=== PATIENT | male | born 1960 | race Caucasian/White ===

== ENCOUNTER 2017-07-02 08:54 | Inpatient (IN) | payer BC ==
[~2017-07-02 08:54] MED LIST: 0.9 % SODIUM CHLORIDE 10 ML VIAL IVP ONE; CELECOXIB 100 MG CAPSULE PO ONE; FAMOTIDINE 20MG TABLET PO ONE; MECLIZINE 25 MG TABLET PO ONE; METOCLOPRAMIDE 10 MG TABLET PO ONE; TRANEXAMIC ACID 1,000 MG/10 ML ML IV ONE; VANCOMYCIN HCL 1,000 MG in DEXTROSE 5 % IN WATER 250 ML IVPB ONE
[2017-07-02 09:39] LABS: ABO GROUP B; RH TYPE NEGATIVE
[2017-07-02 09:46] LABS: ANTIBODY SCREEN NEGATIVE (NEGATIVE)
[2017-07-02] MEDS ORDERED: HYDROCODONE/APAP 10/325 TABLET PO PRN ×2 (13:30)
[2017-07-02] MEDS ORDERED: CEFAZOLIN 2 Gram 2 GM/50 ML BAG IVPB SCH (13:30)
[2017-07-02] MEDS ORDERED: BISACODYL 10 MG SUPP RC PRN (13:30)
[2017-07-02] MEDS ORDERED: NALOXONE 0.4 MG/1 ML VIAL IVP PRN (13:30)
[2017-07-02] MEDS ORDERED: AL HYDROX/MAG HYDROX 30ML UD PO PRN (13:30)
[2017-07-02] MEDS ORDERED: ACETAMINOPHEN W/ CODEINE 300MG/60MG TABLET PO PRN ×2 (13:30)
[2017-07-02] MEDS ORDERED: HYDROMORPHONE HCL 2 MG/ML VIAL IM PRN (13:30)
[2017-07-02] MEDS ORDERED: ONDANSETRON HCL IV 4 MG/2 ML VIAL IVP PRN (13:30)
[2017-07-02] MEDS ORDERED: MAGNESIUM HYDROXIDE 30 ML UDC PO PRN (13:30)
[2017-07-02] MEDS ORDERED: KETOROLAC 30 MG/ML VIAL IVP PRN ×2 (13:30)
[2017-07-02] MEDS ORDERED: ZOLPIDEM TARTRATE 5 MG TABLET PO PRN (13:30)
[2017-07-02] MEDS ORDERED: ACETAMINOPHEN 325 MG TAB PO PRN (13:30)
[2017-07-02] MEDS: DIPHENHYDRAMINE HCL 25 MG CAPSULE PO PRN ×2 (14:58→22:46)
[2017-07-02] MEDS ORDERED: TRANEXAMIC ACID 1,000 MG/10 ML ML IV ONE (15:37)
[2017-07-02] MEDS ORDERED: BUPIVACAINE 0.75% W/EPI MPF 30ML VIAL IVP ONE (15:37)
[2017-07-02] MEDS ORDERED: HYDROMORPHONE HCL 2 MG/ML VIAL IV ONE (16:02)
[2017-07-02] MEDS ORDERED: DIPHENHYDRAMINE HCL IV 50 MG/ML VIAL IVP ONE (16:02)
[2017-07-02] MEDS ORDERED: LIDOCAINE 2% MDV (20MG/ML) 20ML VIAL IV ONE (16:02)
[2017-07-02] MEDS ORDERED: MIDAZOLAM HCL 2MG/2ML VIAL IV ONE (16:02)
[2017-07-02] MEDS ORDERED: PROPOFOL 10 MG/ML VIAL IV ONE (16:02)
[2017-07-02] MEDS ORDERED: FENTANYL PF 100MCG/2ML VIAL IV ONE (16:02)
--- NOTE | 2017-07-02 16:21 | Operative Note ---
DATE: 07/02/2017. PREOPERATIVE DIAGNOSIS: DJD OF THE LEFT HIP. POSTOPERATIVE DIAGNOSIS: DJD OF THE LEFT HIP. PROCEDURE: CEMENTLESS LEFT TOTAL HIP ARTHROPLASTY USING MATA-NEPHEW COMPONENTS WITH A SIZE 58 NO-HOLE REFLECTION CUP, A 20-DEGREE OFFSET, 36 MM DIAMETER LINER, A SIZE 18 HIGH OFFSET ECHELON STEM WITH AA +8, 36 MM DIAMETER OXINIUM HEAD. STAFF SURGEON: HERMANN PAZ M.D. ANESTHESIA: SPINAL. PREPARATION: CHLORAPREP. INDIVIDUAL CONSIDERATIONS: None. PROCEDURE: The patient was taken to the Operating Room and placed supine on the operating table. He had successful induction of a spinal anesthetic. He was then placed on his side, left side up, and his left leg and hip were prepped and draped in the usual fashion. The patient had a direct posterior approach to the hip. Sharp dissection was carried down through the skin and subcutaneous tissue. Small veins were coagulated with a Bovie. The tensor gluteal fascia was opened along the entire length of the incision and deep retractors were placed. Short external rotators were identified, piriformis fossa and removed exposing the posterior capsule. A posterior capsulectomy was performed, and the hip was dislocated posteriorly. His head didn't look bad but he had basically an area of his acetabular dome that was exposed bone and an oscillating saw was used to make a femoral neck cut just about a fingerbreadth above the lesser trochanter. A I now exposed the capsule, and a rim capsulectomy was performed. starting with a 47 mm reamer to get to the medial wall. I reamed the introitus, which was a 57 for a 58 cup. There was decent bleeding cancellous bone. I slightly under-reamed a 56 and after thorough irrigation, I impacted a 58 mm no-hole Warroad cup at 20 degrees of forward flexion and 40 degrees of abduction using the extra-articular alignment guide and bony landmarks. There was very solid cementless fixation. The center cap screw was placed and then a 20-degree offset, 36 mm diameter liner was placed with the offset primarily posteriorly and inferiorly and this gave an excellent, stable acetabular construct and this was packed off. The proximal femur was delivered into the wound. A box-cutting osteotome was used to remove proximal metaphyseal bone. Mid-stem reaming was done to a size 18. I started actually only filling cortex to maybe even 16; he was that big. I went ahead and broached to an 18. There was solid cementless fixation to the broach. Calcar reamed and with a high offset +8, there was absolute stability. The trial was removed and after thorough irrigation, I impacted a size 18 high offset Warroad stem with solid cementless fixation and solid calcar contact. I again irrigated, dried to the Lopez taper, and impacted a +8 Oxinium head and reduced the hip with solid stability, absolute anterior stability with full leg extension and external rotation. I flexed him up with the knee into the chest, which was stable. I had him flex 90 degrees, internally rotated 90 degrees, and even at that point, it was still stable. If I flexed him past 140 and then internally rotated past 30 or 40 then we start to get instability issues. After irrigation, the sciatic nerve was inspected and was found to be completely intact. Hemostasis was obtained with a Bovie. The patient did receive a gram of Tranexamic Acid preoperatively. I mixed a gram Tranexamic Acid with 30 mL of saline and placed this deep to the fascia. The fascia was closed a running #2 Quill. The subcutaneous was closed with 0 Quill and the skin was closed with jillian. I did infiltrate the skin with 30 mL of of 0.75 percent Marcaine with Epinephrine prior. The patient tolerated the procedure well. Needle and sponge counts were correct. Estimated blood loss was about 250 mL. There were no complications. cc: Dr. Danny Mata JOB NUMBER: [id number] MTDD
--- NOTE | 2017-07-02 17:09 | Rehab Evaluation ---
Patient Information - Patient Information Diagnosis: DJD L hip Ordered Treatment: PT Evaluate and Treat Status: Initial Evaluation Surgery: Yes (AMBER L) Date of Surgery: 07/02/17 Past Medical/Surgical Hx: PAST MEDICAL/SURGICAL HISTORY Past Surgical History 2014 lung bx open 2006 lumbar fusion back injs ana cristina PMH - Respiratory Hx Respiratory Disorders Yes Hx Bronchitis Yes: "a litle bronchitis right now" no [place] Comment: was told he had lung CA in 2014 open bx neg. PMH - Cardiovascular Hx Cardiovascular Disorders Yes Hx Hypertension Yes: on meds good control Exercise Tolerance Poor Comment: due to hip pain PMH - Neuro Hx Neurological Disorders No PMH - GI Hx Gastrointestinal Disorders No PMH - Hx Genitourinary Disorders No PMH - Endocrine Hx Endocrine Disorders Yes Hx Diabetes No Hx Thyroid Disease Yes PMH - Musculoskeletal Hx Musculoskeletal Disorders Yes Hx Arthritis Yes Hx Fibromyalgia lt toe Hx Gout Yes PMH - Psych Hx Psychiatric Problems No PMH - Hematology/Oncology Hx Hematology/Oncology No Disorders Premorbid Status: Detail (The patient was independent with all mobility prior to surgery.) Social History: Detail (The patient lives with spouse in an apartment with 6 steps at the enterance. The patient's bathroom is equipped with a walk in shower and an elevated toilet seat. The patient is a dairy truck driver. The patient was vended a walker.) Precautions: S[place], Other (WBAT on the L LE, AMBER precautions.) - Time With Patient Total Time Spent With Patient (Min): 30 Treatment Procedures: Detail (Initial Evaluation, Gait training) Subjective Information - Subjective Information Per Patient (The patient had no complaints of pain. The patient required verbal cues to remember the AMBER precautions.) Objective Data - Mental Status Patient Orientation: Oriented x3 - Visual Perception Appears within normal limits for therapeutic activities - ROM Within normal limits (The patient's L hip was WNL within total hip precautions. The patient's R LE AROM was WNL.) - Strength/Tone Within normal limits (The patient's R LE strength was generally 4+ to 5/5. The patient's L LE strength was not formally tested secondary to s/p surgery however was functional secondary to the patient was able to lift LE out of bed.) - Bed Mobility Independent (The patient was independent with supine to and from sit transfer.) - Transfers Independent (The patient was independent with sit to and from stand transfer and toilet transfer with verbal cues to push up from the surface.) - Balance Balance Sitting: Good Balance Standing: Good - Sensation Intact - Gait Detail (The patient ambulated with a standard walker a distance of 50 feet x 1 , 11 feet x 1 WBAT on the L LE with supervison of 1 for safety and to handle equipment.) Therapy Assessment - Therapy Assessment Detail (The patient was independent with bed mobility and transfers, and supervision with ambulation with transfers. Fell the patient will progress well with mobility.) Problem List - Problem List Physical Therapy Problem List: Detail (1) Non ambulatory on stairs 2) Decreased L LE strength) Goals - Goals Physical Therapy Goals: 1) The patient will be independent/supervision with ambulation on 6 stairs. 2) The patient with be independent with ambulation with assistive device household distances WBAT on the L LE. 3) The patient will be independent with HEP and THR precautions. Prognosis - Prognosis Good Plan - Plan Physical Therapy Plan: PT 1-2 times a day for gait training, transfer training, instruction in AMBER HEP and THR precautions.
[2017-07-02] MEDS: POTASSIUM CHLORIDE/D5-0.9%NACL 20 MEQ/1,000 ML BAG IV SCH (18:38)
[2017-07-02] MEDS: VANCOMYCIN HCL 1,000 MG in DEXTROSE 5 % IN WATER 250 ML IVPB SCH ×2 (22:46)
[2017-07-02] MEDS: DOCUSATE SODIUM 100 MG CAPSULE PO SCH (22:47)
[2017-07-03] MEDS: POTASSIUM CHLORIDE/D5-0.9%NACL 20 MEQ/1,000 ML BAG IV SCH ×2 (05:13→06:39)
[2017-07-03 06:56] LABS: HEMATOCRIT 37.4 % (42.0-52.0); HEMOGLOBIN 12.4 gm/dl (14.0-18.0)
[2017-07-03] MEDS ORDERED: AMLODIPINE BESYLATE 5MG TAB PO SCH (07:00)
[2017-07-03] MEDS ORDERED: BENAZEPRIL 20 MG TABLET PO SCH (07:00)
[2017-07-03] MEDS ORDERED: LEVOTHYROXINE SODIUM 150 MCG TABLET PO SCH (07:00)
[2017-07-03 07:10] LABS: BLOOD UREA NITROGEN 15 mg/dL (6-20); CREATININE 0.8 mg/dL (0.7-1.2); EST GLOMERULAR FILTRATION RATE > 60 mL/min; GLUCOSE,RANDOM 99 mg/dL (74-109)
[2017-07-03] MEDS: VANCOMYCIN HCL 1,000 MG in DEXTROSE 5 % IN WATER 250 ML IVPB SCH ×2 (08:42)
[2017-07-03] MEDS ORDERED: RIVAROXABAN 10 MG TABLET PO SCH (10:00)
[2017-07-03] MEDS ORDERED: FERROUS SULFATE 325 MG TAB PO SCH (10:00)
[2017-07-03] MEDS: DOCUSATE SODIUM 100 MG CAPSULE PO SCH (10:08)
--- NOTE | 2017-07-03 11:59 | Physical Therapy Tx Note ---
Physical Therapy Tx Note - Treatment Note Tolerated: Good Total Time Spent With Patient: 20 Physical Therapy Tx Note: Detail (The patient was up in chair when PT arrived. The patient ambulated with standard walker a distance of 60 feet x1 independently WBAT on the L LE with occasional verbal cues for proper walker placement. The patient ambulated on a flight of 3 steps and 8 steps with use of railing and folded walker independently WBAT on the L LE. The patient's THR precautions and HEP were reviewed. The patient completed the following exercises : ankle pumps, quad sets, gluteal sets, hip abduction supine, heel slides, hamstring sets.) Physical Therapy Problem List: Detail (1) Non ambulatory on stairs 2) Decreased L LE strength) Physical Therapy Goals: GOALS MET: 1) The patient will be independent/ supervision with ambulation on 6 stairs. 2) The patient with be independent with ambulation with assistive device household distances WBAT on the L LE. 3) The patient will be independent with HEP and THR precautions. Prognosis: Good Physical Therapy Plan: The patient is discharged from inpatient PT due to all PT goals have been met. The patient is to receive home PT.
--- NOTE | 2017-07-03 12:52 | Rehab Evaluation ---
Patient Information - Patient Information Diagnosis: DJD L hip Ordered Treatment: OT Evaluate and Treat Status: Initial Evaluation Surgery: Yes (AMBER L) Date of Surgery: 07/02/17 Past Medical/Surgical Hx: PAST MEDICAL/SURGICAL HISTORY Past Surgical History 2014 lung bx open 2006 lumbar fusion back injs ana cristina PMH - Respiratory Hx Respiratory Disorders Yes Hx Bronchitis Yes: "a litle bronchitis right now" no [place] Comment: was told he had lung CA in 2014 open bx neg. PMH - Cardiovascular Hx Cardiovascular Disorders Yes Hx Hypertension Yes: on meds good control Exercise Tolerance Poor Comment: due to hip pain PMH - Neuro Hx Neurological Disorders No PMH - GI Hx Gastrointestinal Disorders No PMH - Hx Genitourinary Disorders No PMH - Endocrine Hx Endocrine Disorders Yes Hx Diabetes No Hx Thyroid Disease Yes PMH - Musculoskeletal Hx Musculoskeletal Disorders Yes Hx Arthritis Yes Hx Fibromyalgia lt toe Hx Gout Yes PMH - Psych Hx Psychiatric Problems No PMH - Hematology/Oncology Hx Hematology/Oncology No Disorders Premorbid Status: Detail (The patient was independent with all mobility and I/ ADL's prior to surgery. Hx of L5 back injury and LUE shattered bone injury with no residual issues with function.) Social History: Detail (The patient lives with spouse in an apartment with 6 steps at the entrance. The patient's bathroom is equipped with a walk in shower and a raised toilet seat, and a grab bar by each. The patient is a reach lift truck driver. The patient was vended a walker. Pt. has a positive support system, with adult children that can assist if needed.) Precautions: [place], Other (WBAT on the L LE, AMBER precautions.) - Time With Patient Total Time Spent With Patient (Min): 20 Subjective Information - Subjective Information Per Patient Objective Data - Pain Pain Present: Yes (3/10 pain with activity) - Mental Status Patient Orientation: Oriented x3 - Visual Perception Appears within normal limits for therapeutic activities - ROM Within normal limits (BUE) - Strength/Tone Within normal limits (BUE MMT 5/5.) - Coordination Appears within normal limits for therapeutic activities - Bed Mobility Independent - Transfers Independent (Sit<>stand bed to 2WW.) - Balance Balance Sitting: Good Balance Standing: Fair - Sensation Intact (BUE lt touch in tact) - ADL's/IADL's Detail (Educ. was provided in dressing techniques and use of AE (engineering scientist, sock aid, long handled sponge). Pt. stated he has a engineering scientist at home. Pt. returned demo. and used engineering scientist to don BLE pants, socks, and shoes. Pt. required assistance to tie LLE shoe, and 1 VC to comply with hip precautions ( application to dressing).) Therapy Assessment - Therapy Assessment Detail (In-pt. OT services not recommended at this time. Pt. demo. knowledge of hip precautions and educ. was provided to apply to ADL's. Pt. demo. ability to use engineering scientist to dress BLE while adhering to hip precautions. Pt. has a positive support system and help as needed in home environment.) Patient Education - Patient Education Teaching Topic: Equipment Use, Precautions Response: Return Demonstration, Verbalize Understanding Teaching Method: Discussion, Demonstration Teaching Recipient: Patient Barriers To Learning: None Problem List - Problem List Physical Therapy Problem List: Detail (1) Non ambulatory on stairs 2) Decreased L LE strength) Goals - Goals Physical Therapy Goals: GOALS MET: 1) The patient will be independent/ supervision with ambulation on 6 stairs. 2) The patient with be independent with ambulation with assistive device household distances WBAT on the L LE. 3) The patient will be independent with HEP and THR precautions. Prognosis - Prognosis Good Plan - Plan Physical Therapy Plan: The patient is discharged from inpatient PT due to all PT goals have been met. The patient is to receive home PT. Occupational Therapy Plan: D/C from in-pt. OT services at this time. Pt. was educ. to call rehab dept. if Q's arise upon returning home.
--- NOTE | 2017-07-03 20:03 | Discharge Summary ---
DATE OF ADMISSION: 07/02/2017 DATE OF DISCHARGE: 07/03/2017 DATE OF SURGERY: 07/02/2017 HISTORY: Mr. Watts a delightful 57-year-old male who presents with end-stage arthrosis of his left hip. He was admitted after a left total hip arthroplasty. Postoperatively, he did well. His hospital course was unremarkable. His discharge hemoglobin was 12.4. DISCHARGE INSTRUCTIONS: The plan is to discharge him to home in the care of his family. Home PT and Visiting Nurses have been arranged. He will be given [place] for pain and Xarelto for DVT prophylaxis. His sutures will be removed in two weeks. He will follow-up in my office in four weeks. FINAL DIAGNOSIS/PRIMARY DIAGNOSIS: END-STAGE ARTHROSIS OF THE LEFT HIP. SECONDARY DIAGNOSES: OPERATIVE BLOOD LOSS ANEMIA. OPERATIONS AND PROCEDURES: CEMENTLESS LEFT TOTAL HIP ARTHROPLASTY. DISCHARGE CONDITION: GOOD. JOB NUMBER: [id number] MTDD
== END 2017-07-03 14:10 | disposition home or self-care (01) | DRG 470 ==
LOC: MEDSURG 08:54
PROVIDERS: ADMIT Orthopaedic Surgery; ATTEND Orthopaedic Surgery
PROC: 0SRB06A Replacement of Left Hip Joint with Oxidized Zirconium on Polyethylene Synthetic Substitute, Uncemented, Open Approach (ICD-10-PCS; principal; 2017-07-02 11:45)
DX: M16.12 Unilateral primary osteoarthritis, left hip (principal); E03.9 Hypothyroidism, unspecified; I10 Essential (primary) hypertension
CPT/HCPCS: 80048; 85014; 85018; 86850; 86900; 86901; 97110; 97165; J1200; J3480; J3490; J7060